=== PATIENT | male | born 1960 | race Caucasian/White ===

== ENCOUNTER → 2017-11-22 | Outpatient (CLI) | payer MEDICARE, BC ==
[2017-11-22 12:49] LABS: Appearance,Urine Clear (Clear); Bilirubin,Urine Negative (Negative); Blood,Urine Negative (Negative); Color,Urine Light Yellow; Glucose,Urine (UA) Negative (Negative); Ketones,Urine Negative (Negative); Leukocyte Esterase,Urine Negative (Negative); Nitrite,Urine Negative (Negative); PH, Urine 5.5 (5.0-8.0); Protein,Urine Negative (Negative); Specific Gravity,Urine 1.007 (1.001-1.035); Urobilinogen,Urine <2.0 mg/dL (<2.0)
[2017-11-22 12:51] LABS: MCH 29.2 pg (25.0-35.0); MCHC 33.3 g/dL (31.0-37.0); MCV 87.6 fL (80.0-100.0); Mean Platelet Volume 7.2; Platelet Count 196 k/uL (150-450); RDW 13.8 % (11.5-15.5); WBC 7.3 k/uL (3.8-10.6)
[2017-11-22 12:57] LABS: INR 2.1 (<1.2); Prothrombin Time 18.9 sec (9.0-12.0)
[2017-11-22 13:02] LABS: ALT 48 U/L (21-72); AST 38 U/L (17-59); Albumin 4.2 g/dL (3.5-5.0); Alkaline Phosphatase 77 U/L (38-126); Anion Gap 11 mmol/L; Blood Urea Nitrogen 16 mg/dL (9-20); Calcium 9.5 mg/dL (8.4-10.2); Carbon Dioxide 26 mmol/L (22-30); Chloride 105 mmol/L (98-107); Glucose 85 mg/dL (74-99); Potassium 4.3 mmol/L (3.5-5.1); Sodium 142 mmol/L (137-145); Total Bilirubin 0.6 mg/dL (0.2-1.3); Total Protein 7.5 g/dL (6.3-8.2)
== END | disposition home or self-care (01) ==
LOC: LABPAT 11:06
PROVIDERS: ATTEND Orthopaedic Surgery
DX: Z01.818 Encounter for other preprocedural examination (principal); Z01.812 Encounter for preprocedural laboratory examination
CPT/HCPCS: 36415; 80053; 81003; 85027; 85610; 85730; 87070; 93005

== ENCOUNTER 2017-12-17 08:25 | Inpatient (IN) | payer MEDICARE, BC ==
[2017-12-06 15:55] VITALS: BMI 31.1
[~2017-12-17 08:25] MED LIST: ACETAMINOPHEN TAB 500 MG TAB PO ONE; LACTATED RINGERS 1,000 ML IV SCH; LIDOCAINE 1% 20 ML VIAL (10MG/ML) FOR IV START INTRADERMA PRN; MELOXICAM 7.5 MG TAB PO ONE; ONDANSETRON 4 MG/2 ML VIAL IVP ONE; ROPIVACAINE 246.25 MG, EPINEPHrine 0.5 MG, KETOROLAC 30 MG, cloNIDine HCL/PF 80 MCG, WA... MISCELLANE ONE; TRANEXAMIC ACID 1,000 MG in SODIUM CHLORIDE 0.9% 50 ML IVPB ONE; ceFAZolin IN SWFI 2 GM/20 ML SYRINGE IVP ONE
[2017-12-17 09:06] LABS: Prothrombin Time 10.2 sec (9.0-12.0)
[2017-12-17] MEDS ORDERED: MIDAZOLAM 2 MG/2 ML VIAL ONE ×2 (09:35→10:47)
[2017-12-17] MEDS ORDERED: ROCURONIUM BROMIDE 10 MG/ML 10 ML VIAL IV ONE (10:47)
[2017-12-17] MEDS ORDERED: fentaNYL (PF) 50 MCG/ML 2 ML AMP ONE (10:47)
[2017-12-17] MEDS ORDERED: NEOSTIGMINE 1 MG/ML 10 ML VIAL ONE (10:47)
[2017-12-17] MEDS ORDERED: GLYCOPYRROLATE 0.2 MG/ML 2 ML VIAL ONE (10:47)
[2017-12-17] MEDS ORDERED: TRANEXAMIC ACID 1,000 MG/10 ML VIAL ONE (10:47)
[2017-12-17] MEDS ORDERED: LIDOCAINE 1% INJ 10MG/ML (20 ML MDV) ONE (10:47)
[2017-12-17] MEDS ORDERED: SODIUM CHLORIDE 0.9% 100 ML BAG ONE (10:47)
[2017-12-17] MEDS ORDERED: PROPOFOL 10 MG/ML 20 ML VIAL IV ONE (10:47)
[2017-12-17] MEDS ORDERED: SUCCINYLCHOLINE CHLORIDE 100 MG/5 ML SYR IV ONE (10:47)
[2017-12-17] MEDS ORDERED: LACTATED RINGERS 1,000 ML IV ONE (11:05)
[2017-12-17] MEDS ORDERED: ceFAZolin 3,000 MG in SODIUM CHLORIDE 0.9% IRRIGATIO 3,000 ML IRRIGATION ONE (11:12)
--- NOTE | 2017-12-17 12:05 | P.OP ---
Date of Procedure: 12/17/17 Preoperative Diagnosis: Severe osteoarthritis left knee Postoperative Diagnosis: Severe osteoarthritis left knee Procedure(s) Performed: Left total knee arthroplasty Implants: Benítez and Nephew Oxinium femoral component size 7, left Benítez & Nephew Brittney II left nonporous tibial baseplate size 7 Benítez & Nephew size 9 mm Legion XLPE high flexion articular insert, size 7-8 Benítez & Nephew Brittney II resurfacing patellar component, 35 mm All components were cemented using Lawanda bone cement.. The articulation is Oxinium on polyethylene. Anesthesia: GETA Surgeon: Sukhwinder Stanton Archery Equipment Repairer #1: Wandy Ignacio Estimated Blood Loss (ml): 50 Pathology: other (Bone and cartilage) Condition: stable Disposition: PACU Indications for Procedure: After failure of conservative treatment we discussed the surgical and nonsurgical treatment options at length. Patient wishes to proceed with a total knee arthroplasty. Complications specific to this procedure were discussed at length, including but not limited to infection, bleeding, stiffness , and nerve injury. Patient is aware of all these complications and informed consent was obtained Operative Findings: The operative findings are consistent with severe osteoarthritis of the left knee Description of Procedure: Patient was seen in the preoperative area consent was reviewed and operative site was marked with a skin marker. An adductor canal pain catheter was placed by anesthesia in the preoperative area. Patient was then brought to the operating room and given preoperative antibiotics intravenously. A general anesthetic was administered by the anesthesia department. A tourniquet was placed on the upper thigh and the lower extremity was prepped and draped in usual sterile fashion. A gram of transexamic acid was given. A universal timeout was then performed which confirmed the patient's name, surgical site, ALLERGIES, and consent. The lower extremity was then exsanguinated and tourniquet was inflated to 250 mmHg. A standard and anterior midline approach to the knee was performed. The skin and subcutaneous tissue was dissected down to the patellar tendon. A medial parapatellar arthrotomy was then performed. The knee was then extended, the patellar was everted, and the knee was again flexed. Anterior horns of both menisci were excised, and a release was performed to the posterior medial aspect of the knee. On gross visual inspection, there was complete loss of articular cartilage in the medial and patellofemoral joint spaces. There was also significant cartilage damage in the lateral compartment. There were multiple periarticular osteophytes which were then removed with a Ronguer. The femoral canal was then opened with the appropriate drill, and the intramedullary femoral cutting guide was then placed and set for 4 of valgus. The distal femoral cutting block was then pinned in place, and the distal femur was then cut. The cutting block was then removed and the cut was checked for flatness. Next, the sizing guide was then placed and set for 3 external rotation based off of the epicondylar axis and Whitesides line. After the femur was sized, the appropriate 4-in-1 cutting block was then pinned in place. The anterior condyles were cut without notching. The posterior and chamfer cuts were performed while protecting the collateral ligaments. The cutting block was then removed, and the femoral canal was plugged with autologous bone. Attention was then directed to the tibia. The remaining ACL was removed with a Ronguer, and the tibia was then gently subluxed forward with a large bent knee retractor. Any remaining menisci was excised. The posterior lateral corner was cauterized in order to cauterize the lateral geniculate artery. The extra medullary tibial cutting guide was then placed, set for the appropriate rotation , slope, and depth of resection. The proximal tibia cutting guide was then pinned in place. Proximal tibia was then cut and sized. Next trials were then placed with the appropriate-sized insert. The knee was able to fully extend and flex to 130 and was stable throughout all range of motion. The knee was then extended, patella everted. Patella was then measured, and then using an osteotomy guide, the patella was cut at the appropriate level. The patella was then measured and drilled and the patella trial was then placed. The knee was then taken through range of motion with the patella trial and the patella tracked normally. The knee was then extended patella trial was then removed and the patella was everted. Knee was then flexed and lug holes were drilled through the femoral trial and the femoral trial was then removed. The tibial was then exposed, and the tibial broach guide was then pinned in place after it was set for the appropriate rotation to allow for the most coverage without overhang. The tibia was then reamed and broached. The cut surfaces of bone were then irrigated with pulsatile lavage. The posterior structures were injected with the ropivacaine solution. The knee was also irrigated with Irrisept solution. The components were then opened, the cement was mixed, and the components were then cemented in place. The cement was allowed to harden with the knee in full extension. While the cement was hardening, the remaining soft tissues were then injected with a ropivacaine solution, which consisted of 246.25 mg of ropivacaine, 0.5 mg of epinephrine, 30 mg of Toradol, 80 g of clonidine, and 48.45 mL of sterile water, for a total of 100 mL of fluid injected. After the cemented hardened. The tourniquet was released, and hemostasis was obtained. A second gram of transexamic acid was given. The knee was again irrigated. The knee was again taken through range of motion and found to be stable throughout all range of motion of 0-130 , and the patella tracked normally. The fascia was then closed with #2 strata fix suture. The subcutaneous tissue was closed with 3-0 Vicryl and 3-0 strata fix. Dermabond glue was used for the skin and placed with the knee in flexion. The patient was placed in a sterile silver dressing. Patient was then transferred to recovery room in stable condition. The financial assistant DON Goodrich was required due the complexity surgery and the need for a skilled surgical services asst. She assisted in positioning, draping, retraction, and closure of the wound.
[2017-12-17] MEDS ORDERED: hydrOXYzine PAMOATE 25 MG CAP PO PRN (12:33)
[2017-12-17] MEDS ORDERED: BISACODYL 10 MG SUPP RECTAL PRN (12:33)
[2017-12-17] MEDS ORDERED: NA PHOS,M-B/NA PHOS,DI-BA 133 ML ENEMA RECTAL PRN (12:33)
[2017-12-17] MEDS ORDERED: DIAZEPAM 5 MG TAB PO PRN ×2 (12:33)
[2017-12-17] MEDS ORDERED: HYDROcodone/APAP 5-325MG 1 EACH TAB PO PRN (12:33)
[2017-12-17] MEDS ORDERED: MAGNESIUM HYDROXIDE 2,400 MG/10 ML CUP PO PRN (12:33)
[2017-12-17] MEDS ORDERED: NALOXONE 0.4 MG/ML 1 ML VIAL IV PRN (12:33)
[2017-12-17] MEDS ORDERED: ONDANSETRON 4 MG/2 ML VIAL IVP PRN (12:33)
[2017-12-17] MEDS ORDERED: MORPHINE SULFATE 4MG/4ML SYRG IVP PRN ×3 (12:33)
[2017-12-17] MEDS: MEPERIDINE 50 MG/ML SYRINGE IVP ONE ×2 (12:45→12:57)
--- NOTE | 2017-12-17 13:11 | XR ---
Left knee HISTORY: Postop 2 views of the left knee Patient is status post left knee arthroplasty. Lucency in the soft tissues compatible with postop sta te. There is anatomic alignment. Stent is present in the distribution of the superficial femoral vasc ulature. IMPRESSION: Orthopedic follow-up
[2017-12-17] MEDS: MORPHINE SULFATE 2 MG/ML SYRINGE IV PRN ×2 (13:18→13:28)
[2017-12-17] MEDS: ROPIVACAINE 1,100 MG, SODIUM CHLORIDE 0.9% 330 ML MISCELLANE PRN ×4 (14:26→23:18)
[2017-12-17] MEDS: SODIUM CHLORIDE 0.9% 1,000 ML IV SCH (15:21)
[2017-12-17] MEDS ORDERED: WARFARIN 5 MG TAB PO ONE (18:00)
[2017-12-17] MEDS: ceFAZolin IN SWFI 2 GM/20 ML SYRINGE IVP SCH (18:18)
[2017-12-17] MEDS: HYDROcodone/APAP 5-325MG 1 EACH TAB PO PRN (18:18)
[2017-12-17] MEDS: SENNOSIDES-DOCUSATE SODIUM 1 EACH TAB PO SCH (20:26)
[2017-12-17] MEDS: ATORVASTATIN 10 MG TAB PO SCH (23:16)
[2017-12-17] MEDS: GABAPENTIN 300 MG CAP PO SCH (23:16)
--- NOTE | 2017-12-17 23:46 | CONS ---
CONSULTATION OF CONSULTATION: December 17, 2017. REASON FOR CONSULTATION: Medical management requested by Dr. Stanton. CONSULTATION: This is a pleasant 57-year-old patient Dr. Gustafson. Chronic stable medical conditions include GERD, hypertension, hyperlipidemia, factor 5 Leiden mutation, anxiety, and had DVT in the left leg. The patient is chronically on Coumadin which was held for surgery. Postprocedure, pain is controlled. Left knee in a dressing. Denies any cardiac history. Currently no chest pain or short of breath. Did tolerate his supper. Sitting up in bed. REVIEW OF SYSTEMS: CONSTITUTIONAL: None. HEENT slight decreased vision in the left eye being worked up. Cardiovascular none. Gastrointestinal heartburn. Genitourinary none. Musculoskeletal: Arthritic pain in joints. Dermatological none. Hematologic and lymphatic none. Psychiatry anxiety. Neurological none. PAST HISTORY: DVT in the left leg, GERD, hypertension, hyperlipidemia, factor 5 Leiden mutation, decreased vision in the left eye being worked up, anxiety. PAST SURGICAL HISTORY: Back surgery, hernia repair, joint replacement, right total knee arthroplasty, bilateral shoulder surgery, right elbow surgery, , bilateral knee, [place] filter, L5, back surgery, left total knee. PAST PSYCH HISTORY: Anxiety. SOCIAL HISTORY: , retired. Does not smoke or drink alcohol. Use to work in the [employer] in [place]. FAMILY HISTORY: DVT. HOME MEDICATIONS: 1. Coumadin 5 mg daily. 2. Flomax 0.4 mg daily. 3. Mobic 7.5 p.o. daily. 4. Lansoprazole 30 mg p.o. daily. 5. Hardesty 7.5, p.r.n. 6. Neurontin 300 mg p.o. daily and 600 mg at night. 7. Folic acid 1 mg p.o. daily. 8. Lovenox 100 mg daily. 9. Celexa 10 mg p.o. daily. 10.Chlorthalidone 25 mg p.o. daily. 11.Aricept 5 mg p.o. q.12. 12.Lipitor 10 mg q.h.s. ALLERGIES: None. EXAMINATION: Temp 97.4, pulse 73, respiratory rate 16, blood pressure 108/67, pulse ox 94% on room air. General appearance: Well built, BMI 31.2. Sitting up comfortable. Eyes: Pupils equal, conjunctivae normal. HEENT external appearance of nose and ears normal. Oral cavity normal. Neck JVD not raised. Mass not palpable. Respiratory effort normal. Lungs are clear. Cardiovascular 1st and 2nd sounds no edema. ABDOMEN: Soft, nontender. Liver and spleen not palpable. Lymphatics: No lymph nodes palpable in the neck and axilla. PSYCHIATRY: Alert and oriented times three. Mood and affect normal. Neurological: Pupils equal. Decreased vision to the left. Cannot see my facial outline, otherwise pulses grossly intact. Musculoskeletal dressing over the left knee. INVESTIGATIONS: INR 1.0. ASSESSMENT: 1. Left total knee arthroplasty. 2. Factor 5 Leiden mutation with prior history of DVT. The patient is chronically on Coumadin. 3. Gastroesophageal reflux disease. 4. Essential hypertension. 5. Hyperlipidemia. 6. Anxiety, not otherwise specified. 7. Decreased vision out of the left eye being worked up as an outpatient. PLAN: Given that the patient is on a higher for bleeding risk disorder with factor 5 laden, we will start the patient on Coumadin tonight 5 mg and resume patient's Lovenox tomorrow, probably in the evening. If okay with Dr. Stanton. Other home medications are be resumed. Care was discussed with the patient. Questions were answered. Copy to Dr. Gustafson. GUILLERMINA / DERIK: [id number] /
[2017-12-18] MEDS: HYDROcodone/APAP 5-325MG 1 EACH TAB PO PRN ×3 (01:29→13:45)
[2017-12-18] MEDS: ceFAZolin IN SWFI 2 GM/20 ML SYRINGE IVP SCH (01:29)
--- NOTE | 2017-12-18 05:21 | P.PN ---
Progress Note - Text Progress Note Date: 12/18/17 Postoperative day # 1 status post total knee arthroplasty, under spinal anesthesia, and adductor canal catheter placed for postoperative analgesia. Currently on ropivacaine 0.2% 8 mL per hour and continuous infusion, catheter site local. There is no erythema, and there is no tenderness at site of catheter insertion. patient is sleeping and resting comfortably with no complaints. VAS: 2/10 Breakthrough Meds: see EMR Complications: None . Assessment and Plan: Acute postoperative pain, adductor canal catheter for pain control, pain is well controlled will continue the same management. Promote early ambulation
[2017-12-18] MEDS: SODIUM CHLORIDE 0.9% 1,000 ML IV SCH (05:23)
[2017-12-18 07:36] LABS: INR 1.1 (<1.2); Prothrombin Time 10.9 sec (9.0-12.0)
[2017-12-18 07:40] LABS: Basophils % (A) 0 %; Eosinophils # (A) 0.1 k/uL (0-0.7); Eosinophils % (A) 1 %; HCT 35.7 % (39.0-53.0); HGB 11.7 gm/dL (13.0-17.5); Lymphocytes % (A) 11 %; MCH 28.6 pg (25.0-35.0); MCHC 32.8 g/dL (31.0-37.0); MCV 87.1 fL (80.0-100.0); Mean Platelet Volume 7.2; Monocytes # (A) 0.6 k/uL (0-1.0); Monocytes % (A) 7 %; Neutrophils # (A) 7.5 k/uL (1.3-7.7); Neutrophils % (A) 80 %; Platelet Count 187 k/uL (150-450); RDW 13.8 % (11.5-15.5); WBC 9.3 k/uL (3.8-10.6)
[2017-12-18] MEDS: GABAPENTIN 300 MG CAP PO SCH ×2 (08:36→20:56)
[2017-12-18] MEDS: TAMSULOSIN 0.4 MG CAP.ER.24H PO SCH (08:36)
[2017-12-18] MEDS: CHLORTHALIDONE 25 MG TAB PO SCH (08:36)
[2017-12-18] MEDS: CITALOPRAM HYDROBROMIDE 10 MG TAB PO SCH (08:36)
[2017-12-18] MEDS: PANTOPRAZOLE 40 MG TABLET PO SCH (08:36)
[2017-12-18] MEDS: FOLIC ACID 1 MG TAB PO SCH (08:44)
[2017-12-18] MEDS ORDERED: HYDROmorphone 2 MG TAB PO PRN ×2 (09:16)
[2017-12-18] MEDS ORDERED: HYDROmorphone 4 MG TABLET PO PRN (09:17)
--- NOTE | 2017-12-18 09:17 | P.DS ---
Providers Date of admission: 12/17/17 08:25 Expected date of discharge: 12/18/17 Attending physician: Sukhwinder Stanton Consults: 12/17/17 12:33 Consult Physician Routine Consulting Provider: Khadar Mars Consult Reason/Comments: medical management and anticoagulation Do you want consulting provider notified?: Yes Primary care physician: Barry Ramoseldor - Discharge Diagnosis(es) (1) Primary osteoarthritis of left knee Current Visit: Yes Status: Acute (2) S/P total knee arthroplasty Current Visit: Yes Status: Acute Hospital Course: This is a 57-year-old male with known history of degenerative arthritis of the left knee. The patient presents for evaluation. After discussion and consideration patient elects to proceed with total knee arthroplasty. The patient is seen preoperatively by Dr. Stanton and medically cleared for surgery by their primary care physician. Patient is admitted to [facility] on 12/17/2017 for total knee arthroplasty. The procedures performed without complication or sequelae. The patient is doing well postoperatively. Labs and vital signs are stable on day of discharge. On day of discharge patient's knee incision is healing well. There is minimal erythema. There is no drainage noted at this time. There is minimal soft tissue swelling to the knee. Compartments are soft. Patient has full foot and ankle motion without difficulty or pain. Neurovascular status to the left lower extremity is intact. Patient is discharged home in good condition. Please see med rec for accurate list of home medications. Plan - Discharge Summary Discharge Rx Participant: Yes New Discharge Prescriptions: New HYDROcodone/APAP 5-325MG [[place] 5-325] 1 - 2 tab PO Q4-6H PRN #90 tab PRN Reason: Pain Sennosides [Senokot] 1 tab PO BID #60 tablet No Action Folic Acid 1 mg PO DAILY Lansoprazole 30 mg PO DAILY Gabapentin 600 mg PO HS Gabapentin [Neurontin] 300 mg PO DAILY Warfarin Sodium [Coumadin] 5 mg PO DAILY #10 tab Atorvastatin [Lipitor] 10 mg PO HS Tamsulosin [Flomax] 0.4 mg PO DAILY Meloxicam [Mobic] 7.5 mg PO DAILY Citalopram Hydrobromide [CeleXA] 10 mg PO DAILY Chlorthalidone 25 mg PO DAILY Cefadroxil [Duricef] 500 mg PO Q12HR Enoxaparin [Lovenox] 100 mg SQ DAILY HYDROcodone/APAP 7.5-325MG [[place] 7.5-325] 1 - 2 tab PO Q6HR PRN PRN Reason: Pain Discharge Medication List Folic Acid 1 mg PO DAILY 04/19/15 [History] Lansoprazole 30 mg PO DAILY 04/19/15 [History] Gabapentin 600 mg PO HS 06/23/15 [History] Gabapentin [Neurontin] 300 mg PO DAILY 06/23/15 [History] Warfarin Sodium [Coumadin] 5 mg PO DAILY #10 tab 06/30/15 [Rx] Atorvastatin [Lipitor] 10 mg PO HS 12/06/17 [History] Cefadroxil [Duricef] 500 mg PO Q12HR 12/06/17 [History] Chlorthalidone 25 mg PO DAILY 12/06/17 [History] Citalopram Hydrobromide [CeleXA] 10 mg PO DAILY 12/06/17 [History] Meloxicam [Mobic] 7.5 mg PO DAILY 12/06/17 [History] Tamsulosin [Flomax] 0.4 mg PO DAILY 12/06/17 [History] Enoxaparin [Lovenox] 100 mg SQ DAILY 12/17/17 [History] HYDROcodone/APAP 7.5-325MG [[place] 7.5-325] 1 - 2 tab PO Q6HR PRN 12/17/17 [ History] HYDROcodone/APAP 5-325MG [[place] 5-325] 1 - 2 tab PO Q4-6H PRN #90 tab 12/18/17 [ Rx] Sennosides [Senokot] 1 tab PO BID #60 tablet 12/18/17 [Rx] Follow up Appointment(s)/Referral(s): Sukhwinder Stanton DO [Doctor of Osteopathic Medicine] - 2 Weeks Ambulatory/Diagnostic Orders: Continuous Passive Motion (CPM) Machine [DME.AMB1] Time Frame: 3 Weeks, Location : Determined By Patient Activity/Diet/Wound Care/Special Instructions: Weightbearing as tolerated with a walker CPM 5-6h daily Leave dressing intact. May be removed by home care nurse in 10 days. May shower with dressing on. [facility] with questions or concerns [phone] Discharge Disposition: HOME WITH HOME HEALTH SERVICES
--- NOTE | 2017-12-18 11:19 | P.ONQ ---
Anesthesiology Proc Note - PNB - Peripheral Nerve Block Performed Left Adductor Canal Infusion Time Out Performed: Yes Procedure Start Time: :46 Procedure Stop Time: :55 Indication: Acute Post-Operative Pain, Requested by physician Sedation Type: Sedate with meaningful contact maintained Preparation: Sterile Dressing Position: Supine Catheter: Indwelling Needle Types: On-Q Needle Size: 100mm (4") Needle Gauge: 21 Technique: Ultrasound Injectate: 0.5% Ropivacaine (see comment for volume) (ropi .5% 20cc) Blood Aspirated: No Pain Paresthesia on Injection Noted: No Resistance on Injection: Normal Events: Uneventful and Well Tolerated
[2017-12-18] MEDS ORDERED: HYDROcodone/APAP 7.5-325MG 1 EACH TAB PO PRN (16:17)
[2017-12-18] MEDS ORDERED: WARFARIN 5 MG TAB PO SCH (18:00)
[2017-12-18] MEDS: HYDROcodone/APAP 7.5-325MG 1 EACH TAB PO PRN (18:02)
[2017-12-18] MEDS: ATORVASTATIN 10 MG TAB PO SCH (20:56)
[2017-12-18] MEDS: SENNOSIDES-DOCUSATE SODIUM 1 EACH TAB PO SCH (20:56)
[2017-12-19] MEDS ORDERED: HYDROcodone/APAP 7.5-325MG 1 EACH TAB ONE (03:05)
[2017-12-19 05:27] VITALS: BP 117/74; PULSE 62; RESP 16; TEMP 98.2
[2017-12-19] MEDS: HYDROcodone/APAP 7.5-325MG 1 EACH TAB PO PRN ×2 (08:16→13:53)
[2017-12-19] MEDS: CITALOPRAM HYDROBROMIDE 10 MG TAB PO SCH (08:17)
[2017-12-19] MEDS: GABAPENTIN 300 MG CAP PO SCH (08:17)
[2017-12-19] MEDS: TAMSULOSIN 0.4 MG CAP.ER.24H PO SCH (08:17)
[2017-12-19] MEDS: FOLIC ACID 1 MG TAB PO SCH (08:17)
[2017-12-19] MEDS: CHLORTHALIDONE 25 MG TAB PO SCH (08:17)
[2017-12-19] MEDS: PANTOPRAZOLE 40 MG TABLET PO SCH (08:17)
--- NOTE | 2017-12-19 20:06 | PN ---
PROGRESS NOTE DATE OF SERVICE: 12/18/17 PRESENTING COMPLAINT: Left knee surgery. INTERVAL HISTORY: This patient is seen by me yesterday on 12/18/17. I could not dictated because [employer]/computer was down. The patient doing much better. Sitting up, comfortable. Pain is controlled. No nausea, vomiting. Did work with therapy. REVIEW OF SYSTEMS: Done for constitutional, cardiovascular, GI, pulmonary, musculoskeletal; relevant findings as above. CURRENT MEDICATIONS: Reviewed. EXAMINATION: Temperature 98, pulse 84, respirations 16, blood pressure 136/92, pulse ox 94% on room air. GENERAL APPEARANCE: Sitting up, comfortable. EYES: Pupils equal. Conjunctivae normal. HEENT: External nose and ears normal. Oral cavity normal. NECK: JVD not raised. Mass not palpable. RESPIRATORY: Effort, lungs are clear. CARDIOVASCULAR: First and second sounds, no edema. ABDOMEN: Soft, nontender. Liver and spleen not palpable. PSYCHIATRY: Alert and oriented x3. Mood and affect normal. INVESTIGATIONS: Hemoglobin 11.7. ASSESSMENT: 1. Left total knee arthroplasty. 2. Factor V Leiden mutation with prior history of DVT, chronically on Coumadin. 3. Gastroesophageal reflux disease. 4. Essential hypertension. 5. Hyperlipidemia. 6. Anxiety, not otherwise specified. 7. Decreased vision in the left eye being worked up as an outpatient. PLAN: Continue current medication and treatment plan. The patient is on Coumadin, doing well. Care was discussed the patient. MMODL / IJN: [id number] /
--- NOTE | 2017-12-19 20:06 | PN ---
PROGRESS NOTE DATE OF SERVICE: 12/19/17. PRESENTING COMPLAINT: Left knee surgery. INTERVAL HISTORY: Patient is status post left knee surgery, feeling well. Pain is controlled. No nausea, vomiting. No chest pain. Tolerating a diet. Did work with therapy. REVIEW OF SYSTEMS: Done for constitutional, cardiovascular, GI, pulmonary; relevant findings as above. CURRENT MEDICATIONS: Reviewed. EXAM: Temperature 98.2, pulse 62, respirations 16, blood pressure 117/74, pulse ox 94% on room air. GENERAL APPEARANCE: Sitting up, comfortable. EYES: Pupils equal. Conjunctivae normal. HEENT: External appearance of nose and ears normal. Oral cavity normal. NECK: JVD not raised. Mass not palpable. RESPIRATORY: Effort normal, lungs are clear. CARDIOVASCULAR: First and second sounds, no edema. ABDOMEN: Soft, nontender. Liver and spleen not palpable. PSYCHIATRY: Alert and oriented x3. Mood and affect normal. INVESTIGATIONS: No blood work from today. ASSESSMENT: 1. Left total knee arthroplasty. 2. Factor V Leiden mutation with prior history of DVT, chronically on Coumadin. 3. Gastroesophageal reflux disease. 4. Essential hypertension. 5. Hyperlipidemia. 6. Anxiety, not otherwise specified. 7. Decreased vision on the left eye being worked as an outpatient. PLAN: Continue current medication and treatment plan. The patient to have an INR followed up as an outpatient. MMODL / IJN: [id number] /
--- NOTE | 2017-12-27 12:17 | CDI ---
Last Revision, August 2017 Documentation Clarification Form Date: 12/27/17 From: Radha Berry Phone: If you have a question regarding this query, please contact Sofia Lima at [phone] between 8am and 5pm Admit Date: 12/17/2017 8:25:00 AM Patient Name: Matt Hall Visit Number: [id number] Discharge Date: 12/27/17 ATTENTION: The Clinical Documentation Specialists (CDI) and [facility] Coding Staff appreciate your assistance in clarifying documentation. Please respond to the clarification below the line at the bottom and electronically sign. The CDI & [facility] Coding staff will review the response and follow-up if needed. Please note: Queries are made part of the Legal Health Record. If you have any questions, please contact the author of this message via ITS. Dr. Sukhwinder Stanton Patient was admitted for OA of the left knee and for left total knee arthroplasty. In your pre-op H&P, you document "the date of injury was 01/20/17 ". There is no other documentation of an injury to the left knee. Patient history/risk factors: Patient has osteoarthritis of the left knee and history of right total knee arthroplasty. Clinical Indicators: Knee pain, locking/catching giving way and clicking of the left knee. Treatment: Left total knee arthroplasty. Pathology Report: Bone with degenerative changes consistent with osteoarthritis (gross only). In your professional opinion, can you please clarify the cause of the osteoarthritis of the left knee? Post-traumatic Primary Secondary Other, please specify Unable to determine MTDD
--- NOTE | 2018-01-02 08:43 | CDI ---
Last Revision, August 2017 Documentation Clarification Form Date: 01/02/18 From: Radha Berry Phone: If you have a question regarding this query, please contact Sofia Lima at [phone] between 8am and 5pm Admit Date: 12/17/2017 8:25:00 AM Patient Name: Matt Hall Visit Number: [id number] Discharge Date: 12/19/17 ATTENTION: The Clinical Documentation Specialists (CDI) and [facility] Coding Staff appreciate your assistance in clarifying documentation. Please respond to the clarification below the line at the bottom and electronically sign. The CDI & [facility] Coding staff will review the response and follow-up if needed. Please note: Queries are made part of the Legal Health Record. If you have any questions, please contact the author of this message via ITS. Dr. Sukhwinder Stanton Thank you for signing the previous query. Please document a response before signing this query. Patient was admitted for OA of the left knee and for left total knee arthroplasty. In your pre-op H&P, you document "the date of injury was 01/20/17 ". There is no other documentation of an injury to the left knee. Patient history/risk factors: Patient has osteoarthritis of the left knee and history of right total knee arthroplasty. Clinical Indicators: Knee pain, locking/catching giving way and clicking of the left knee. Treatment: Left total knee arthroplasty. Pathology Report: Bone with degenerative changes consistent with osteoarthritis (gross only). In your professional opinion, can you please clarify the type of osteoarthritis of the left knee? Post-traumatic Primary Secondary Other, please specify Unable to determine MTDD
--- NOTE | 2018-01-07 16:58 | CDI ---
Last Revision, August 2017 Documentation Clarification Form Date: 01/07/18 From: Radha Berry Phone: If you have a question regarding this query, please contact Sofia Lima at [phone] between 8am and 5pm. Admit Date: 12/17/2017 8:25:00 AM Patient Name: Matt Hall Visit Number: [id number] Discharge Date: ATTENTION: The Clinical Documentation Specialists (CDI) and [facility] Coding Staff appreciate your assistance in clarifying documentation. Please respond to the clarification below the line at the bottom and electronically sign. The CDI & [facility] Coding staff will review the response and follow-up if needed. Please note: Queries are made part of the Legal Health Record. If you have any questions, please contact the author of this message via ITS. Dr. Sukhwinder Stanton Thank you for signing your previous query, please document a response before signing this query. Patient was admitted for OA of the left knee and for left total knee arthroplasty. In your pre-op H&P, you document "the date of injury was 01/20/17 ". There is no other documentation of an injury to the left knee. Patient history/risk factors: Patient has osteoarthritis of the left knee and history of right total knee arthroplasty. Clinical Indicators: Knee pain, locking/catching giving way and clicking of the left knee. Treatment: Left total knee arthroplasty. Pathology Report: Bone with degenerative changes consistent with osteoarthritis (gross only). In your professional opinion, can you please clarify the type of osteoarthritis of the left knee? Post-traumatic Primary Secondary Other, please specify Unable to determine MTDD
--- NOTE | 2018-01-09 08:04 | CDI ---
Last Revision, August 2017 Documentation Clarification Form Date: 01/09/18 From: Radha Berry Phone: If you have a question regarding this query, please contact Sofia Lima at [phone] between 8am and 5pm Admit Date: 12/17/2017 8:25:00 AM Patient Name: Matt Hall Visit Number: [id number] Discharge Date: 12/19/17 ATTENTION: The Clinical Documentation Specialists (CDI) and [facility] Coding Staff appreciate your assistance in clarifying documentation. Please respond to the clarification below the line at the bottom and electronically sign. The CDI & [facility] Coding staff will review the response and follow-up if needed. Please note: Queries are made part of the Legal Health Record. If you have any questions, please contact the author of this message via ITS. Dr. Sukhwinder Stanton Thank you for signing your previous query. Please document a response before signing this query. Patient was admitted for OA of the left knee and for left total knee arthroplasty. In your pre-op H&P, you document "the date of injury was 01/20/17 ". There is no other documentation of an injury to the left knee. Patient history/risk factors: Patient has osteoarthritis of the left knee and history of right total knee arthroplasty. Clinical Indicators: Knee pain, locking/catching giving way and clicking of the left knee. Treatment: Left total knee arthroplasty. Pathology Report: Bone with degenerative changes consistent with osteoarthritis (gross only). In your professional opinion, can you please clarify the type of osteoarthritis of the left knee? Post-traumatic Primary Secondary Other, please specify Unable to determine MTDD
== END 2017-12-19 14:25 | disposition home health service (06) | DRG 470 ==
LOC: 2ORMAIN 08:25 → 3SUR 12:45
PROVIDERS: ADMIT Orthopaedic Surgery; ATTEND Orthopaedic Surgery
PROC: 0SRD069 Replacement of Left Knee Joint with Oxidized Zirconium on Polyethylene Synthetic Substitute, Cemented, Open Approach (ICD-10-PCS; principal; 2017-12-17 10:25)
DX: M17.12 Unilateral primary osteoarthritis, left knee (principal); D68.51 Activated protein C resistance; E78.5 Hyperlipidemia, unspecified; F41.9 Anxiety disorder, unspecified; G89.18 Other acute postprocedural pain; I10 Essential (primary) hypertension; K21.9 Gastro-esophageal reflux disease without esophagitis; H91.90 Unspecified hearing loss, unspecified ear; N40.0 Benign prostatic hyperplasia without lower urinary tract symptoms; F32.9 Major depressive disorder, single episode, unspecified; K30 Functional dyspepsia; H54.62 Unqualified visual loss, left eye, normal vision right eye; Z79.01 Long term (current) use of anticoagulants; Z79.899 Other long term (current) drug therapy; Z96.651 Presence of right artificial knee joint; Z86.718 Personal history of other venous thrombosis and embolism; Z82.49 Family history of ischemic heart disease and other diseases of the circulatory system
CPT/HCPCS: 85025; 85610; 85730; 88300

== ENCOUNTER → 2020-09-30 | Outpatient (CLI) | payer MEDICARE, BC ==
[2020-09-30 12:39] LABS: Basophils % (A) 1 %; Eosinophils # (A) 0.1 k/uL (0-0.7); Eosinophils % (A) 1 %; HCT 41.1 % (39.0-53.0); HGB 13.7 gm/dL (13.0-17.5); Lymphocytes # (A) 1.6 k/uL (1.0-4.8); Lymphocytes % (A) 25 %; MCH 29.4 pg (25.0-35.0); MCHC 33.3 g/dL (31.0-37.0); MCV 88.2 fL (80.0-100.0); Mean Platelet Volume 7.1; Monocytes # (A) 0.4 k/uL (0-1.0); Monocytes % (A) 7 %; Neutrophils # (A) 4.4 k/uL (1.3-7.7); Neutrophils % (A) 66 %; Platelet Count 175 k/uL (150-450); RBC 4.66 m/uL (4.30-5.90); WBC 6.6 k/uL (3.8-10.6)
[2020-09-30 14:54] LABS: Erythrocyte Sedimentation Rate 22 mm/hr (0-15)
--- NOTE | 2020-09-30 16:53 | NM ---
EXAMINATION TYPE: NM bone/joint limited DATE OF EXAM: 09/30/2020 COMPARISON: NONE HISTORY: Pain in left knee for one month, history left knee arthroplasty 2018, right knee arthroplast y 2014 TECHNIQUE: After the intravenous administration of 23.7 mCi Tc 99m MDP. Images acquired 3 hours pos t injection. Multiple views of bilateral knees are submitted. There is uptake along the tibial plateaus which may be due to stress changes. Photopenic defects with in the knees is consistent with prior arthroplasties. Mild increased uptake at the femoral condyle le mukesh on the left as compared to the right. Some mild uptake also noted at the patellas. IMPRESSION: Findings are relatively symmetric. Difficult to exclude loosening, infection.
== END | disposition home or self-care (01) ==
LOC: RADNMMAIN 10:48
PROVIDERS: ATTEND Orthopaedic Surgery
DX: R94.8 Abnormal results of function studies of other organs and systems (principal); I10 Essential (primary) hypertension; E78.5 Hyperlipidemia, unspecified
CPT/HCPCS: 85652; 85025; 86140; 78300; 36415; A9503